=== PATIENT | male | born 1935 | race Caucasian/White ===

== ENCOUNTER 2016-09-24 16:53 | Inpatient (IN) | payer OTHER ==
[~2016-09-24] VITALS: Ht 177.8 cm; Wt 68.3 kg
[2016-09-24] VITALS (16 sets, daily range): BP systolic 83–107; BP diastolic 35–78
[~2016-09-24 16:53] MED LIST: ETOMIDATE (2MG/ML) 20ML VIAL IV ONE; SUCCINYLCHOLINE CHLORIDE 20 MG/ML 10ML VIAL IV ONE
[2016-09-24] MEDS ORDERED: MIDAZOLAM DRIP 50 mg/50mL 50 ML IV ONE (17:01)
[2016-09-24] MEDS: MIDAZOLAM DRIP 50 mg/50mL 50 ML IV SCH ×4 (17:05→20:57)
[2016-09-24] MEDS ORDERED: ETOMIDATE (2MG/ML) 20ML VIAL IV ONE (17:15)
[2016-09-24] MEDS ORDERED: SUCCINYLCHOLINE CHLORIDE 20 MG/ML 10ML VIAL IV ONE (17:15)
[2016-09-24] MEDS ORDERED: SODIUM CHLORIDE 0.9% 2,000 ML IV ONE (17:15)
[2016-09-24] MEDS ORDERED: methylPREDNISolone SOD SUCC 125 MG/2 ML VL IV ONE (17:30)
[2016-09-24] MEDS ORDERED: ALBUTEROL SULF 2.5 MG/0.5ML(0.5%) NEB SOLN NEB ONE (17:30)
[2016-09-24] MEDS ORDERED: VANCOMYCIN 1GM/250ML D5W 250 ML IV ONE (17:30)
[2016-09-24] MEDS ORDERED: IPRATROPIUM BROM 0.5 MG/2.5ML INH SOL NEB ONE (17:30)
[2016-09-24] MEDS ORDERED: PIPERACILLIN-TAZOB 3.375GM 100 ML IV ONE (17:30)
[2016-09-24 17:41] LABS: CONDITION Y; Hematocrit 36.2 % (36.0-46.0); Hemoglobin 12.5 g/dL (12.2-16.2); Mean Corpuscular Hemoglobin 34.1 pg (28.0-32.0); Mean Corpuscular Hgb Conc. 34.6 g/dL (32.0-36.0); Mean Corpuscular Volume 98.6 fL (80.0-100.0); Mean Platelet Volume 7.4 fL (7.4-10.4); Platelet Count (auto) 464 10^3/uL (140-450); Red Cell Distribution Width 15.6 % (11.6-16.0); SUSPECT SEE PRINTOUT; White Blood Cell 13.4 10^3/uL (4.4-10.8)
[2016-09-24 17:46] LABS: Metamyelocytes % 0; Myelocytes % 0; Promyelocytes % 0; Reactive Lymphocytes 0
[2016-09-24] MEDS ORDERED: ACETAMINOPHEN 650 MG RECT SUPP PR ONE (18:00)
[2016-09-24 18:01] LABS: Albumin 3.1 g/dL (3.4-5.0); Calcium 9.4 mg/dL (8.5-10.1); Magnesium 2.2 mg/dL (1.6-2.6); Potassium 4.2 mmol/L (3.5-5.1)
[2016-09-24 18:06] LABS: Urine Bilirubin Negative (Negative); Urine Blood TRACE /uL (Negative); Urine Color Yellow (Yellow); Urine Glucose Normal (Normal); Urine Ketone Negative (Negative); Urine Nitrite Negative (Negative); Urine RBC 3 /hpf (0 - 4); Urine pH 5.5 (5.0-8.0)
[2016-09-24 18:20] LABS: Total Protein 7.8 g/dL (6.4-8.2)
[2016-09-24 18:26] LABS: INR 1.03 (0.9-1.15); Partial Thromboplastin Time 24.5 sec (22.64-33.71); Prothrombin Time 11.2 sec (9.37-12.3)
[2016-09-24] MEDS ORDERED: NOREPINEPHRINE BITARTRATE 250 ML IV ONE (18:45)
[2016-09-24] MEDS ORDERED: NOREPINEPHRINE BITARTRATE 250 ML IV SCH (18:48)
[2016-09-24 18:51] LABS: Anisocytosis Moderate; Ovalocytes FEW; Platelet Estimate Increased
[2016-09-24] MEDS ORDERED: ASPirin 300 MG RECTAL SUPP PR ONE (19:00)
[2016-09-24] MEDS ORDERED: ENOXAPARIN SOD 60 MG/0.6 ML SYRINGE SC ONE (19:00)
[2016-09-24] MEDS: PROPOFOL 100 ML IV SCH (19:19)
[2016-09-24] MEDS ORDERED: FAMOTIDINE (10MG/ML) 2ML VL IV ONE (19:30)
[2016-09-24] MEDS ORDERED: VANCOMYCIN PER PHARMACY 0 MG IV SCH (19:30)
[2016-09-24] MEDS ORDERED: cefTRIAXone 1GM/50ML D5W 50 ML IV ONE (19:30)
[2016-09-24] MEDS ORDERED: DEXTROSE (50%) 50ML SYRG IV PRN (19:30)
[2016-09-24] MEDS ORDERED: MORPHINE SULF INJ 2 MG/ML SYRINGE 1ML IV PRN ×2 (19:30)
[2016-09-24] MEDS ORDERED: NITROGLYCERIN 0.4 MG SL TAB SL PRN (19:30)
[2016-09-24] MEDS ORDERED: ONDANSETRON HCL 4 MG/2 ML VIAL IV PRN (19:30)
[2016-09-24] MEDS ORDERED: PANTOPRAZOLE 40 MG/10 ML VIAL IV ONE (19:30)
[2016-09-24 19:37] LABS: Lactic Acid w/Reflex 2.8 mmol/L (0.4-2.0)
[2016-09-24 19:44] LABS: REFLEX LACTIC ACID YES OR NO YES
[2016-09-24] MEDS ORDERED: ACETAMINOPHEN 650 MG RECT SUPP PR PRN (19:45)
[2016-09-24 19:52] LABS: Allen Test Modified; Base Excess -8.2 mmol/L (-2.0-2.0); Blood COHb 0.2 % (0.5-1.5); Blood MetHb 0.3 % (0.0-1.5); HCO3 17.1 mmol/L (22-26.0); MODE VENT - A/C; O2Hb 98.5 % (94.0-97.0); PCO2 34.6 mmHg (35.0-45.0); PCO2(T) 34.6 mmHg (35.0-45.0); PO2 424.2 mmHg (80.0-100.0); PO2(T) 424.2 mmHg (80.0-100.0); Sample Type Arterial; pH 7.312 (7.350-7.450)
[2016-09-24] MEDS: NOREPINEPHRINE BITARTRATE 250 ML IV SCH (20:00)
[2016-09-24] MEDS: SODIUM CHLORIDE 0.9% 1,000 ML IV SCH (21:30)
[2016-09-24] MEDS: ALBUTEROL SULF 2.5 MG/0.5ML(0.5%) NEB SOLN NEB SCH (22:00)
[2016-09-24] MEDS: IPRATROPIUM BROM 0.5 MG/2.5ML INH SOL NEB SCH (22:00)
[2016-09-24 23:28] LABS: Lactic Acid w/Reflex 3.3 mmol/L (0.4-2.0)
[2016-09-24 23:33] LABS: REFLEX LACTIC ACID YES OR NO NO
[2016-09-25] VITALS (107 sets, daily range): BP systolic 88–123; BP diastolic 46–98
[2016-09-25] MEDS: IPRATROPIUM BROM 0.5 MG/2.5ML INH SOL NEB SCH ×6 (02:40→23:05)
[2016-09-25] MEDS: ALBUTEROL SULF 2.5 MG/0.5ML(0.5%) NEB SOLN NEB SCH ×6 (02:40→23:05)
[2016-09-25 04:16] LABS: Albumin 2.7 g/dL (3.4-5.0); Calcium 8.8 mg/dL (8.5-10.1)
[2016-09-25 04:18] LABS: BUN/Creatinine Ratio 28.9
[2016-09-25 04:26] LABS: Basophils # (auto) 0 uL; CONDITION Y; Eosinophils # (auto) 0 uL; Hematocrit 35.6 % (41.0-53.0); Hemoglobin 11.8 g/dL (13.5-17.5); Lymphocytes # (auto) 0.2 uL; Lymphocytes % (auto) 1.3 % (10.0-50.0); Mean Corpuscular Hemoglobin 33.4 pg (28.0-32.0); Mean Corpuscular Hgb Conc. 33.1 g/dL (32.0-36.0); Mean Corpuscular Volume 100.9 fL (80.0-100.0); Mean Platelet Volume 7.6 fL (7.4-10.4); Monocytes # (auto) 0.3 uL; Neutrophils # (auto) 12.7 uL; Neutrophils % (auto) 96.7 % (37.0-80.0); Platelet Count (auto) 428 10^3/uL (140-450); Red Cell Distribution Width 15.7 % (11.6-16.0); White Blood Cell 13.1 10^3/uL (4.4-10.8)
[2016-09-25 04:37] LABS: Bilirubin, Total 0.8 mg/dL (0.2-1.0); Total Protein 7.2 g/dL (6.4-8.2)
[2016-09-25] MEDS ORDERED: GLIP-115 PO (04:45)
[2016-09-25] MEDS ORDERED: MELO-85 PO (04:45)
[2016-09-25] MEDS ORDERED: LISI10TA6 PO (04:45)
[2016-09-25] MEDS ORDERED: ATOR40TA52 PO (04:45)
[2016-09-25] MEDS ORDERED: GLIP-116 PO (04:45)
[2016-09-25] MEDS ORDERED: ASPI325T4 PO (04:45)
[2016-09-25] MEDS ORDERED: MEGE40SU2 PO (04:45)
[2016-09-25] MEDS: ACCU-CHEK COMFORT CURVE STRIP VI SCH ×4 (05:53→17:37)
[2016-09-25] MEDS: InsuLIN REG 1unit/0.01ml Soln (100units/ml) SC SCH ×4 (05:54→17:51)
[2016-09-25] MEDS: MIDAZOLAM DRIP 50 mg/50mL 50 ML IV SCH ×2 (08:30→18:08)
[2016-09-25 08:31] LABS: Lactic Acid w/Reflex 2.7 mmol/L (0.4-2.0)
[2016-09-25] MEDS: SODIUM CHLORIDE 0.9% 1,000 ML IV SCH (08:31)
[2016-09-25 08:42] LABS: Allen Test Modified; Base Excess -6.9 mmol/L (-2.0-2.0); Blood 02Sat 97.6 % (96-100); Blood COHb 0.4 % (0.5-1.5); Blood MetHb 0.3 % (0.0-1.5); HHb 2.4 % (0.0-5.0); MODE VENT - A/C; O2Hb 96.9 % (94.0-97.0); PCO2 29.3 mmHg (35.0-45.0); PCO2(T) 29.3 mmHg (35.0-45.0); PO2 114.8 mmHg (80.0-100.0); PO2(T) 114.8 mmHg (80.0-100.0); Sample Type Arterial; pH 7.382 (7.350-7.450)
[2016-09-25 08:56] LABS: REFLEX LACTIC ACID YES OR NO YES
[2016-09-25] MEDS ORDERED: cefTRIAXone 1GM/50ML D5W 50 ML IV SCH (09:00)
[2016-09-25 09:11] LABS: Pressure Support 0
[2016-09-25] MEDS ORDERED: FAMOTIDINE (10MG/ML) 2ML VL IV SCH (10:00)
[2016-09-25] MEDS ORDERED: ENOXAPARIN SOD 40 MG/0.4 ML SYRINGE SC SCH (10:00)
[2016-09-25] MEDS: PANTOPRAZOLE 40 MG/10 ML VIAL IV SCH (10:19)
[2016-09-25] MEDS: VANCOMYCIN 1GM/250ML D5W 250 ML IV SCH (12:00)
[2016-09-25 15:39] LABS: B-Type Natriuretic Peptide 3122.19 pg/mL (0-100)
[2016-09-25 15:59] LABS: Temperature: 23.3 C (20.0-25.0)
[2016-09-25] MEDS ORDERED: DIGOXIN (250MCG/ML) 2 ML AMPULE ONE (16:01)
[2016-09-25] MEDS: DIGOXIN (250MCG/ML) 2 ML AMPULE IV SCH ×2 (16:45→22:56)
[2016-09-25] MEDS: PIPERACILLIN-TAZOB 3.375GM 100 ML IV SCH (17:51)
[2016-09-25] MEDS ORDERED: AMIODARONE IV SCH (18:15)
[2016-09-25] MEDS ORDERED: AMIODARONE HCL (50 MG/ ML) 3 ML VIAL IV ONE (19:10)
[2016-09-25] MEDS ORDERED: AMIODARONE HCL 900 MG IV ONE (19:10)
[2016-09-25] MEDS ORDERED: AMIODARONE HCL 150 MG in D5W 5% 100 ML IV ONE (19:15)
[2016-09-25] MEDS: PROPOFOL 100 ML IV SCH (19:19)
[2016-09-25] MEDS ORDERED: SODIUM CHLORIDE 0.9% 1,000 ML IV SCH (19:24)
[2016-09-25] MEDS ORDERED: AMIODARONE HCL 900 MG in DEXTROSE 500 ML IV SCH (19:30)
[2016-09-25] MEDS ORDERED: LIDOCAINE 1% HCL (LOCAL ANESTH.) INJ 20ML MDV ID PRN (22:30)
[2016-09-25] MEDS: NOREPINEPHRINE BITARTRATE 250 ML IV SCH (22:50)
[2016-09-25] MEDS: ENOXAPARIN SOD 100 MG/1 ML SYRINGE SC SCH (22:55)
[2016-09-25] MEDS: ATORVASTATIN 20 MG TAB PO SCH (22:57)
[2016-09-26] VITALS (106 sets, daily range): BP systolic 93–127; BP diastolic 65–85
[2016-09-26] MEDS: PIPERACILLIN-TAZOB 3.375GM 100 ML IV SCH ×5 (00:46→23:24)
[2016-09-26] MEDS: InsuLIN REG 1unit/0.01ml Soln (100units/ml) SC SCH ×5 (00:49→23:23)
[2016-09-26] MEDS: AMIODARONE HCL 900 MG in DEXTROSE 500 ML IV SCH (01:30)
[2016-09-26] MEDS: IPRATROPIUM BROM 0.5 MG/2.5ML INH SOL NEB SCH ×6 (03:07→22:19)
[2016-09-26] MEDS: ALBUTEROL SULF 2.5 MG/0.5ML(0.5%) NEB SOLN NEB SCH ×6 (03:07→22:19)
[2016-09-26 03:19] LABS: Basophils # (auto) 0 uL; Basophils % (auto) 0.1 % (0.0-2.0); CONDITION Y; Eosinophils # (auto) 0 uL; Hematocrit 32.4 % (41.0-53.0); Hemoglobin 10.8 g/dL (13.5-17.5); Lymphocytes # (auto) 0.2 uL; Lymphocytes % (auto) 1.6 % (10.0-50.0); Mean Corpuscular Hemoglobin 33.4 pg (28.0-32.0); Mean Corpuscular Hgb Conc. 33.4 g/dL (32.0-36.0); Mean Platelet Volume 7.2 fL (7.4-10.4); Monocytes # (auto) 0.3 uL; Monocytes % (auto) 2.5 % (0.0-12.0); Neutrophils # (auto) 12.5 uL; Neutrophils % (auto) 95.8 % (37.0-80.0); Platelet Count (auto) 400 10^3/uL (140-450); Red Cell Distribution Width 15.5 % (11.6-16.0)
[2016-09-26 04:16] LABS: Albumin 2.2 g/dL (3.4-5.0); Bilirubin, Total 0.7 mg/dL (0.2-1.0); Calcium 8.8 mg/dL (8.5-10.1); Potassium 3.8 mmol/L (3.5-5.1); Total Protein 6.6 g/dL (6.4-8.2)
[2016-09-26 04:40] LABS: B-Type Natriuretic Peptide 2270.51 pg/mL (0-100)
[2016-09-26 05:00] LABS: Temperature: 22.5 C (20.0-25.0)
[2016-09-26] MEDS: ACCU-CHEK COMFORT CURVE STRIP VI SCH ×5 (06:25→23:25)
[2016-09-26] MEDS: VANCOMYCIN 1GM/250ML D5W 250 ML IV SCH ×2 (06:25→23:25)
[2016-09-26 07:12] LABS: Allen Test Yes; Base Excess -6.5 mmol/L (-2.0-2.0); Blood 02Sat 97.8 % (96-100); Blood MetHb 0.4 % (0.0-1.5); HCO3 17.1 mmol/L (22-26.0); HHb 2.2 % (0.0-5.0); MODE VENT - A/C; O2Hb 97.4 % (94.0-97.0); PCO2 28.1 mmHg (35.0-45.0); PCO2(T) 28.1 mmHg (35.0-45.0); Sample Type Arterial; pH 7.401 (7.350-7.450)
[2016-09-26] MEDS: MIDAZOLAM DRIP 50 mg/50mL 50 ML IV SCH (07:37)
[2016-09-26] MEDS: ASPirin-EC 81 mg tab PO SCH (10:06)
[2016-09-26] MEDS: ENOXAPARIN SOD 100 MG/1 ML SYRINGE SC SCH ×2 (10:06→21:38)
[2016-09-26] MEDS: PANTOPRAZOLE 40 MG/10 ML VIAL IV SCH (10:06)
[2016-09-26] MEDS: SODIUM CHLOR 0.9% PF (SALINE LOCK) 10ML VIAL IV SCH ×2 (10:07→21:44)
[2016-09-26] MEDS: PROPOFOL 100 ML IV SCH (19:19)
[2016-09-26] MEDS ORDERED: Diabetisource AC 1 Liter GT SCH (20:30)
[2016-09-26] MEDS: ATORVASTATIN 20 MG TAB PO SCH (21:38)
[2016-09-26] MEDS: NOREPINEPHRINE BITARTRATE 250 ML IV SCH (23:33)
[2016-09-27] VITALS (90 sets, daily range): BP systolic 92–139; BP diastolic 58–76
[2016-09-27] MEDS: AMIODARONE HCL 900 MG in DEXTROSE 500 ML IV SCH (01:30)
[2016-09-27] MEDS: IPRATROPIUM BROM 0.5 MG/2.5ML INH SOL NEB SCH ×5 (02:17→18:18)
[2016-09-27] MEDS: ALBUTEROL SULF 2.5 MG/0.5ML(0.5%) NEB SOLN NEB SCH ×5 (02:17→18:18)
[2016-09-27 03:28] LABS: Basophils # (auto) 0 uL; CONDITION Y; Eosinophils # (auto) 0 uL; Hematocrit 30.1 % (41.0-53.0); Hemoglobin 10.2 g/dL (13.5-17.5); Lymphocytes # (auto) 0.2 uL; Lymphocytes % (auto) 1.5 % (10.0-50.0); Mean Corpuscular Hemoglobin 33.9 pg (28.0-32.0); Mean Corpuscular Hgb Conc. 33.9 g/dL (32.0-36.0); Mean Platelet Volume 7.3 fL (7.4-10.4); Monocytes # (auto) 0.4 uL; Monocytes % (auto) 3.4 % (0.0-12.0); Neutrophils # (auto) 10.7 uL; Neutrophils % (auto) 95.1 % (37.0-80.0); Platelet Count (auto) 311 10^3/uL (140-450); Red Cell Distribution Width 15.1 % (11.6-16.0); White Blood Cell 11.3 10^3/uL (4.4-10.8)
[2016-09-27 03:50] LABS: Calcium 7.8 mg/dL (8.5-10.1); Potassium 3.1 mmol/L (3.5-5.1)
[2016-09-27] MEDS ORDERED: POTASSIUM CHL 10% (20 MEQ/15ML) ORAL SOLN GT ONE (04:45)
[2016-09-27] MEDS: ACCU-CHEK COMFORT CURVE STRIP VI SCH ×3 (05:17→17:56)
[2016-09-27] MEDS: InsuLIN REG 1unit/0.01ml Soln (100units/ml) SC SCH ×3 (05:18→18:03)
[2016-09-27] MEDS: PIPERACILLIN-TAZOB 3.375GM 100 ML IV SCH ×2 (05:19→12:25)
[2016-09-27] MEDS ORDERED: HEPARIN IN NS 1000Units/500mL 0 ML ONE (07:53)
[2016-09-27] MEDS ORDERED: LIDOCAINE 2%HCL (LOCAL ANESTH.) INJ 20ML MDV ONE (07:53)
[2016-09-27] MEDS ORDERED: IOHEXOL 350 MG/ML 100ML IJ ONE (07:53)
[2016-09-27 07:56] LABS: Allen Test Yes; Base Excess -3.8 mmol/L (-2.0-2.0); Blood 02Sat 97.6 % (96-100); Blood COHb 0.3 % (0.5-1.5); Blood MetHb 0.3 % (0.0-1.5); HCO3 18.4 mmol/L (22-26.0); HHb 2.4 % (0.0-5.0); MODE VENT - A/C; PCO2 26.2 mmHg (35.0-45.0); PCO2(T) 26.2 mmHg (35.0-45.0); PO2 112.4 mmHg (80.0-100.0); PO2(T) 112.4 mmHg (80.0-100.0); Sample Type Arterial; pH 7.464 (7.350-7.450)
[2016-09-27] MEDS: SODIUM CHLOR 0.9% PF (SALINE LOCK) 10ML VIAL IV SCH (09:48)
[2016-09-27] MEDS: ENOXAPARIN SOD 100 MG/1 ML SYRINGE SC SCH (09:48)
[2016-09-27] MEDS: PANTOPRAZOLE 40 MG/10 ML VIAL IV SCH (09:48)
[2016-09-27] MEDS: ASPirin-EC 81 mg tab PO SCH (09:48)
[2016-09-27 12:16] LABS: Allen Test Yes; Base Excess -1.8 mmol/L (-2.0-2.0); Blood 02Sat 98.3 % (96-100); Blood COHb 0.3 % (0.5-1.5); Blood MetHb 0.3 % (0.0-1.5); HCO3 20.3 mmol/L (22-26.0); HHb 1.7 % (0.0-5.0); MODE VENT - A/C; O2Hb 97.7 % (94.0-97.0); PCO2 26.9 mmHg (35.0-45.0); PCO2(T) 26.9 mmHg (35.0-45.0); PO2 135.6 mmHg (80.0-100.0); PO2(T) 135.6 mmHg (80.0-100.0); Sample Type Arterial; pH 7.495 (7.350-7.450)
[2016-09-27] MEDS: VANCOMYCIN 1GM/250ML D5W 250 ML IV SCH (18:02)
== END 2016-09-27 20:59 | disposition short-term general hospital (02) | DRG 871 ==
LOC: ER 16:53 → EDSEX 16:53 → TELE 16:54 → ICU WEST 20:00
PROVIDERS: ADMIT Internal Medicine; ATTEND Internal Medicine
PROC: 5A1945Z Respiratory Ventilation, 24-96 Consecutive Hours (ICD-10-PCS; principal; 2016-09-24)
PROC: 0BH17EZ Insertion of Endotracheal Airway into Trachea, Via Natural or Artificial Opening (ICD-10-PCS; 2016-09-24)
PROC: 02HV33Z Insertion of Infusion Device into Superior Vena Cava, Percutaneous Approach (ICD-10-PCS; 2016-09-25)
PROC: B5181ZA Fluoroscopy of Superior Vena Cava using Low Osmolar Contrast, Guidance (ICD-10-PCS; 2016-09-25)
DX: A41.9 Sepsis, unspecified organism (principal); I21.4 Non-ST elevation (NSTEMI) myocardial infarction; J96.01 Acute respiratory failure with hypoxia; R65.21 Severe sepsis with septic shock; G93.41 Metabolic encephalopathy; I50.21 Acute systolic (congestive) heart failure; J15.4 Pneumonia due to other streptococci; I13.0 Hypertensive heart and chronic kidney disease with heart failure and stage 1 through stage 4 chronic kidney disease, or unspecified chronic kidney disease; E44.0 Moderate protein-calorie malnutrition; N17.9 Acute kidney failure, unspecified; I48.92 Unspecified atrial flutter; Z99.11 Dependence on respirator [ventilator] status; I48.91 Unspecified atrial fibrillation; I12.9 Hypertensive chronic kidney disease with stage 1 through stage 4 chronic kidney disease, or unspecified chronic kidney disease; E78.5 Hyperlipidemia, unspecified; R65.20 Severe sepsis without septic shock; N18.3 Chronic kidney disease, stage 3 (moderate); E11.21 Type 2 diabetes mellitus with diabetic nephropathy; E11.22 Type 2 diabetes mellitus with diabetic chronic kidney disease; I25.10 Atherosclerotic heart disease of native coronary artery without angina pectoris; I25.5 Ischemic cardiomyopathy; C14.0 Malignant neoplasm of pharynx, unspecified; R32 Unspecified urinary incontinence; Z68.21 Body mass index [BMI] 21.0-21.9, adult; Z95.1 Presence of aortocoronary bypass graft
CPT/HCPCS: 31500; 36415; 36569; 36600; 51702; 70450; 71010; 71250; 74176; 80048; 80053; 80061; 80202; 80307; 80320; 81001; 82805; 82962; 83036; 83605; 83735; 83880; 84484; 85007; 85025; 85027; 85379; 85610; 85730; 87040; 87070; 87077; 87081; 87086; 87186; 87205; 93005; 93306; 93970; 94003; 94640; 96361; 96365; 96375; 99291; 99292; C9113; J0330; J0696; J1815; J2250; J2543; J7060